=== PATIENT | male | born 1965 | race Caucasian/White ===

== ENCOUNTER 2020-03-21 14:24 | Emergency (ER) | payer MEDICAID ==
[~2020-03-21] VITALS: Ht 188 cm; Wt 104.0 kg
[2020-03-21 14:46] VITALS: BP 98/77
[2020-03-21 15:39] LABS: BASOPHILS # (AUTO) 0.1 X10'3 (0-0.2); EOSINOPHILS # (AUTO) 0.4 X10'3 (0-0.9); EOSINOPHILS % (AUTO) 3.4 % (0-6); HEMATOCRIT 47.5 % (42.0-52.0); HEMOGLOBIN 15.9 g/dl (14.0-17.9); LYMPHOCYTES # (AUTO) 3.3 X10'3 (1.1-4.8); LYMPHOCYTES % (AUTO) 31.1 % (21-51); MEAN CORPUSCULAR HEMOGLOBIN 29.2 PG (27.0-31.0); MEAN CORPUSCULAR HGB CONC 33.4 g/dL (33.0-36.5); MEAN CORPUSCULAR VOLUME 87.4 FL (78-98); MEAN PLATELET VOLUME 7.3 FL (7.4-10.4); MONOCYTES # (AUTO) 0.8 X10'3 (0-0.9); MONOCYTES % (AUTO) 7.2 % (2-12); NEUTROPHILS # (AUTO) 6.1 X10'3 (1.8-7.7); NEUTROPHILS % (AUTO) 57.3 % (42-75); PLATELET COUNT 262 X10'3 (140-440); RED BLOOD COUNT 5.43 X10'6 (4.70-6.10); RED CELL DISTRIBUTION WIDTH 13.4 % (11.5-14.5); WHITE BLOOD COUNT 10.7 X10'3 (4.5-11.0)
[2020-03-21 15:51] LABS: ALANINE AMINOTRANSFERASE 27 U/L (12-78); ALBUMIN 3.9 G/DL (3.4-5.0); ALKALINE PHOSPHATASE 110 IU/L (46-116); ANION GAP 1 (8-16); ASPARTATE AMINO TRANSFERASE 16 U/L (10-37); BILIRUBIN,TOTAL 0.3 MG/DL (0.1-1.0); BLOOD UREA NITROGEN 14 MG/DL (7-18); BUN/CREATININE RATIO 13.1 (5.4-32.0); CALCIUM 9.3 MG/DL (8.5-10.1); CHLORIDE 105 MMOL/L (99-107); CREATININE 1.07 MG/DL (0.60-1.10); GLUCOSE 92 MG/DL (70-104); LIPASE 50 U/L (73-393); POTASSIUM 4.9 MMOL/L (3.5-5.1); SODIUM 140 MMOL/L (135-145); TOTAL CARBON DIOXIDE 33.8 MMOL/L (24-32); TOTAL PROTEIN 7.7 G/DL (6.4-8.2); eGFR 71 ML/MIN
[2020-03-21] MEDS ORDERED: ondansetron 4mg rapidly disintigrating tab PO ONE (16:20)
[2020-03-21] MEDS ORDERED: HYDROcodone/acetaminophen 5mg/325mg tablet PO ONE (16:20)
[2020-03-21] MEDS ORDERED: ONDA4TAB6 PO (16:42)
[2020-03-21] MEDS ORDERED: HYDR-4383 PO (16:42)
== END 2020-03-21 16:56 | disposition home or self-care (01) ==
LOC: ER 14:25
DX: K40.90 Unilateral inguinal hernia, without obstruction or gangrene, not specified as recurrent (principal); Z79.899 Other long term (current) drug therapy
CPT/HCPCS: 36415; 80053; 83690; 85025; 99283

== ENCOUNTER 2020-04-11 02:43 | Emergency (ER) | payer MEDICAID, OTHER ==
[~2020-04-11] VITALS: Ht 188 cm; Wt 113.6 kg
[~2020-04-11 02:43] MED LIST: HYDR-4383 PO; ONDA4TAB6 PO
[2020-04-11] MEDS ORDERED: ketorolac trometh inj. 60 MG/2 ML VIAL IM ONE (03:10)
[2020-04-11] MEDS ORDERED: chlordiazePOXIDE 25mg capsule PO ONE (03:10)
[2020-04-11] MEDS ORDERED: NAPR-56 PO (03:42)
[2020-04-11 03:50] VITALS: BP 156/115
== END 2020-04-11 03:52 | disposition home or self-care (01) ==
LOC: ER 02:44
DX: S39.011A Strain of muscle, fascia and tendon of abdomen, initial encounter (principal); K40.90 Unilateral inguinal hernia, without obstruction or gangrene, not specified as recurrent; I10 Essential (primary) hypertension; F15.90 Other stimulant use, unspecified, uncomplicated; Z79.899 Other long term (current) drug therapy; X58.XXXA Exposure to other specified factors, initial encounter; Y93.89 Activity, other specified; Y92.89 Other specified places as the place of occurrence of the external cause; Y99.8 Other external cause status
CPT/HCPCS: 74018; 93005; 96372; 99283; J1885

== ENCOUNTER 2020-04-13 02:52 | Emergency (ER) | payer OTHER ==
[~2020-04-13] VITALS: Ht 188 cm; Wt 113.6 kg
[~2020-04-13 02:52] MED LIST changes: +NAPR-56 PO
--- NOTE | 2020-04-13 04:29 | NUR ---
2ND PAGE OUT FOR [facility]ASC AT 04:28.
--- NOTE | 2020-04-13 04:54 | NUR ---
CALLED HOUSE SUP 2 TIMES TO CONTACT [facility].
--- NOTE | 2020-04-13 05:02 | NUR ---
Received call back from [facility]. Tech on the way to ED.
[2020-04-13] MEDS ORDERED: ketorolac trometh inj. 60 MG/2 ML VIAL IM ONE (05:45)
[2020-04-13] MEDS ORDERED: acetaminophen 325mg tablet PO ONE (05:45)
[2020-04-13 06:10] VITALS: BP 142/100
--- NOTE | 2020-04-13 06:21 | NUR ---
pt refused to sign papers because we would not give him oxycontin
== END 2020-04-13 06:11 | disposition home or self-care (01) ==
LOC: ER 02:53
DX: M79.605 Pain in left leg (principal); I10 Essential (primary) hypertension; F15.90 Other stimulant use, unspecified, uncomplicated; Z79.899 Other long term (current) drug therapy
CPT/HCPCS: 73560; 93971; 96372; 99284; J1885